=== PATIENT | male | born 1975 | race Caucasian/White ===

== ENCOUNTER 2024-04-25 10:25 | Day surgery (SDC) | payer OTHER, SELFPAY ==
[2024-04-19 09:19] VITALS: BMI 38.0
[2024-04-25] VITALS (13 sets, daily range): BP systolic 110–178; BP diastolic 61–101; PULSE 88–107; RESP 11–20; TEMP 36.4–37.1; O2SAT 90–98; BMI 38.0
--- NOTE | 2024-04-25 | DI.RAD.S_ITS ---
PROCEDURE: XR LUMBAR SPINE 2-3V INDICATIONS: TLIF L4-5 TECHNIQUE: Interbody stool COMPARISON: None FINDINGS: Bones: AP and lateral digital images from the OR show anterior/posterior L4-5 fusion provided by in body spacer pedicle screw struts. Alignment is anatomic. No osseous abnormality. Possible spacer overlies L5-S1 on the anterior view. Suggest full series Soft tissues: Overlying bowel gas pattern is normal. No suspicious soft tissue calcifications. IMPRESSION: L4-5 anterior/posterior fusion changes alignment is anatomic. Possible spacer overlying the L5-S1 region only on the AP view. Suggest full lumbar series images Dictated by: Max Restrepo M.D. on 04/26/2024 at 11:58 Approved by: Max Restrepo M.D. on 04/26/2024 at 12:01
[2024-04-25] MEDS: GABAPENTIN 600 MG TABLET PO (10:53)
[2024-04-25] MEDS: ACETAMINOPHEN 325 MG TABLET 975 MG PO (10:53)
--- NOTE | 2024-04-25 11:25 | PM.PREOP ---
Pre-operative Note Interval Note History & Physical reviewed/Exam performed by Physician: Yes Changes to H&P: No
[2024-04-25] MEDS: LACTATED RINGERS 1,000 ML 42 ML IV ×2 (11:26→13:58)
--- NOTE | 2024-04-25 12:03 | P.OP_ITS ---
Operative Date/Time/Diagnoses Date of procedure: 04/25/24 Time of procedure: 12:03 Pre-op diagnosis: 1. L4-5 spinal stenosis with neurogenic claudication 2. History of L5-S1 fusion with posterior instrumentation Post-op diagnosis: same Procedure & Clinicians Procedure: 1. L4-5 Postero-lateral and posterior interbody fusion 2. L4-5 interbody cage placement. 3. L4-5 decompressive laminectomy with bilateral facetecomies 4. L4-5 Posterior non-segmental instrumentation 5. L5-S1 revision laminectomy with exploration of fusion 6. [place] of bone marrow from iliac crest 7. Utilization of microsurgical technique and operating microscope 8. Utilization of robotic assisted navigation Same procedure as scheduled: Yes Indications: Patient has been having chronic back pain and worsening lumbar radiculopathy and symptoms of neurogenic claudication. He was found to have severe L4-5 spinal stenosis with history of L5-S1 fusion correlating with his current symptoms. Patient failed multiple conservative management with worsening pain weakness and numbness in his lower extremity. Patient has been having difficulty performing activity of daily living. After discussing risks benefits of treatment options, patient elected proceed with surgery. Surgeon: Royal Chase Can Sorter: Kim Rodriguez Click Yes if Unassisted: No Anesthesia Type: General Operative Notes Closure Type: primary Specimen(s): none sent Prosthetic devices, grafts, tissues, transplants, or devices: Globus CREO MIS screws, Rise cage Applied: catheter Estimated Blood Loss (mL): 100 Blood products transfused: none Procedure in detail: Patient was seen in the preoperative area. Risks and benefits of the surgery was discussed with the patient. Informed consent was obtained from the patient and placed in the chart. Surgical site was marked. Patient was taken to the operative room. General anesthesia was administered. Prophylactic antibiotic was given to the patient less than 30 min before the incision was made. Patient was placed into a prone position on the Yoel table. Patient's back was then prepped and draped in the sterile fashion. Time-out was performed at this time. After patient was prepped and draped, patient's PSIS was palpated and marked bilaterally. Small 1 cm incision was made over the PSIS for placement of the reference probes. Two trocar was placed into the PSIS 1 on each side. The reference probe was attached to the trocar of the reference apparatus. At this time the C-arm imaging was used to confirm AP and lateral of L4, L5, S1 vertebrae and merged the C-arm imaging using the Etece robotic navigation system with the CT of the lumbar spine. After successful merging was completed and confirmed, skin marker was used to mary out the skin incision using the Etece robotic arm. Bilateral incision was made at this time. Using patient's previous scar incision was made over the L4, L5, S1 interval on the right side. Fascia was incised in line with skin incision. Patient's previously placed hardware over the L5-S1 level was identified by dissecting down to the level the hardware using a Bovie and a Person. The locking caps which was removed using hardware removal regional flatbed truck driver. The locking pretty was then removed from the tulips of the pedicle screws using a Airam. The pedicle screws were then removed using the screwdriver. The screws were found to be solid without loosening. Pre templated trajectory was used and guided using the Etece robotic navigation system for left L4, L5 pedicle screws and right L4, L5 pedicle screws placement. This was done by using the robotic arm to guide the high- speed bur to make a cortical entry point. Next a drill was placed also using the robotic arm and guided using the navigation system drilling partially through bilateral L4, L5 pedicles. Next L4, L5 pedicle screws it was pre templated and measured was placed onto the power regional flatbed truck driver and inserted into the pedicles bilaterally. After all 4 screws were placed C-arm imaging was taken of both AP and lateral to confirm the placement. Excellent placement of the screws were confirmed and a matched precisely with the pre planned screw placement using the navigation system. MARs retractor was inserted using Etece nagivation guidence. Globus MARS retractors was placed inside the incision and docked onto the L4 lamina. Using microsurgical technique and operating microscope, a L4 laminectomy and L4-5 facetectomy was performed using a Kerrison rongeur. The laminectomy and facetectomy was performed in order to decompress patient's cauda equina as well as the nerve roots exiting at the L4-5 level. Patient was found have severe central stenosis, lateral recess and neural foramen stenosis which was fully decompressed after the laminectomy facetectomy. There was also significant epidural lipomatosis. The epidural lipomatosis was also resected using a pituitary to further decompress the epidural space. More than 75% of the facets were removed during the process of decompression rendering L4-5 level grossly unstable and required a fusion procedure at the same time. The disc space at L4-5 was identified, and a total diskectomy was performed at L4-5 level. The endplates were decorticated using a rasp and shaver. The total diskectomy and decortication was performed at L4-5 level in order to to accomplish a L4-5 fusion. The local bone from the laminectomy and facetectomy was saved for local bone grafting. After the total diskectomy and decortication was completed, Viacel bone graft material was combined with local bone that was harvested earlier. At this time, a separate skin is incision was made over the iliac crest. A Jamshidi needle was inserted into the iliac crest through a separate skin incision on the right. 5 cc of bone marrow aspiration was obtained through the separate skin incision using a Jamshidi needle from the iliac crest. The bone marrow aspiration was combined with local bone and the Viacel bone grafting material. The bone grafting material was placed into the L4-5 interbody space along with a expandable cage. The cages were expanded to its maximum height using the torque limiting screwdriver. The disc preparation as well as the cage insertion were also performed under navigation guidance. After the cage was placed, AP and lateral C-arm imaging was taken to confirm placement of the cage and excellent position was confirmed. The fusion mass on the left side of L5-S1 was exposed by performing a right- sided hemilaminectomy at L5-S1 level. The hemilaminectomy was performed using the Kerrison rongeur to undercut the lamina as well removing additional epidural scar tissue for purpose of decompressing the epidural space. The fusion of L5- S1 level was found to be solid. Globus MARS retractor was inserted and docked onto the L4-5 posterolateral gutter. Using the power drill, posterior-lateral decortication was performed at L4-5 level until bleeding cortical bone was identified. The remaining bone grafting material was placed into the L4-5 posterior lateral gutter he order to accomplish posterolateral fusion at the L4- 5 level. At this time the tulips were attached to the L4 and L5 pedicle screw shanks. This was done in L4 and L5 pedicles bilaterally. After measuring the length of the rods, they were inserted into the tulips of the pedicle screws and locked in place using locking caps and torque limiting screwdriver bilaterally. Total 4 caps and 2 titanium rods was used in order to complete the posterior instrumentation construct. After all the hardware was placed, and confirmed with AP and lateral C-arm imaging, the wound was then irrigated with sterile normal saline and packed with Ray-Ming gauze for 3 min to accomplish hemostasis. After the gauze was removed the deep fascia was closed with #1 Vicryl suture. The subcutaneous layer was closed with 2-0 Vicryl. The skin was closed with skin didier. Patient tolerated the procedure well. There were no complications. Neuro monitoring system was used to monitor patient's neurologic status throughout entire procedure. There was no disturbance of the neural monitoring signals throughout the case. The Operation could not have been safely performed without compromising the technical result or length of the procedure, without the assistance of a skilled surgical services asst. The surgical services asst was medically necessary for proper positioning, retraction and manipulation of instruments, proper exposure, surgical preparation, and manipulation of tissue. Complications: none Post-operative Condition: stable Disposition: PACU Plan for aftercare: Admit to inpatient hospital
[2024-04-25] MEDS: CEFAZOLIN 2 GM/100 ML PREMIX 100 ML IV (12:06)
--- NOTE | 2024-04-25 12:29 | SUR.OPER ---
Prone on spine table, head in foam head support, padded chest and pelvic supports, gel pad at knees, lower legs supported by pillows; nipples, genitalia and toes free of pressure, arms secured on foam padded arm boards at <90 degrees abduction. Tape over blanket at thigh secured to table.
[2024-04-25] MEDS: BUPIVACAINE 0.25% (PF) 60 ML, EPINEPHrine 0.15 MG INJ (13:13)
[2024-04-25] MEDS: BUPIVACAINE LIPOSOME 266 MG/20 ML VIAL INJ (13:17)
[2024-04-25] MEDS: hydrOXYzine 50 MG/ML INJ IM (15:15)
[2024-04-25] MEDS: MEPERIDINE 50 MG/ML INJ 12.5 MG IV (15:38)
[2024-04-25] MEDS: OXYCODONE IR 5 MG TABLET PO ×2 (15:51→20:18)
[2024-04-25] MEDS: LACTATED RINGERS 1,000 ML 125 ML IV (18:15)
[2024-04-25] MEDS: ACETAMINOPHEN 325 MG TABLET 650 MG PO (18:15)
[2024-04-25] MEDS: DOCUSATE 100 MG CAPSULE PO (20:17)
[2024-04-25] MEDS: SENNOSIDES 8.6 MG TABLET 17.2 MG PO (20:17)
[2024-04-25] MEDS: ATORVASTATIN 20 MG TABLET 80 MG PO (20:18)
[2024-04-25] MEDS: CEFAZOLIN VIAL 3 GM in SODIUM CHLORIDE 0.9% 100 ML IV (20:19)
[2024-04-25] MEDS: OXYCODONE IR 10 MG TABLET PO (23:15)
[2024-04-26] MEDS: OXYCODONE IR 10 MG TABLET PO ×2 (02:10→05:52)
[2024-04-26] MEDS: CEFAZOLIN VIAL 3 GM in SODIUM CHLORIDE 0.9% 100 ML IV (04:17)
[2024-04-26 04:44] LABS: Hematocrit 47.2 % (41-53); Hemoglobin 16.2 g/dL (13.5-17.5)
[2024-04-26 04:49] VITALS: BP 140/76; PULSE 100; RESP 20; TEMP 36.2; O2SAT 94
--- NOTE | 2024-04-26 07:24 | PM.DS.1 ---
History of Present Illness History of Present Illness Date Patient Seen: 04/26/24 Time Patient Seen: 07:24 Chief complaint: Back pain Narrative: Back pain has been [id number]. Patient has been up out of bed twice since surgery. Urinating on his own. Has assistance at home. Otherwise without complaints. Discharge Providers Provider Discharge Date: 04/26/24 Primary care physician: Blair Jones DO Consults: 04/25/24 16:34 Consult to Occupational Therapy Evaluate & Treat Comment: Physician Instructions: Evaluate and treat Consult to Physical Therapy Evaluate & Treat Comment: Physician Instructions: Evaluate and Treat Discharge provider: Steve Teixeira PA-C Summary Hospital Course Discharge Diagnosis: 1. L4-5 spinal stenosis with neurogenic claudication 2. History of L5-S1 fusion with posterior instrumentation Hospital Course: 1. L4-5 Postero-lateral and posterior interbody fusion 2. L4-5 interbody cage placement. 3. L4-5 decompressive laminectomy with bilateral facetecomies 4. L4-5 Posterior non-segmental instrumentation 5. L5-S1 revision laminectomy with exploration of fusion 6. [place] of bone marrow from iliac crest 7. Utilization of microsurgical technique and operating microscope 8. Utilization of robotic assisted navigation Same procedure as scheduled: Yes Indications: Patient has been having chronic back pain and worsening lumbar radiculopathy and symptoms of neurogenic claudication. He was found to have severe L4-5 spinal stenosis with history of L5-S1 fusion correlating with his current symptoms. Patient failed multiple conservative management with worsening pain weakness and numbness in his lower extremity. Patient has been having difficulty performing activity of daily living. After discussing risks benefits of treatment options, patient elected proceed with surgery. Surgeon: Royal Chase Tank Worker: Kim Rodriguez Click Yes if Unassisted: No Anesthesia Type: General Operative Notes Closure Type: primary Specimen(s): none sent Prosthetic devices, grafts, tissues, transplants, or devices: Globus CREO MIS screws, Rise cage Applied: catheter Estimated Blood Loss (mL): 100 Blood products transfused: none Patient admitted to the hospital for the above-mentioned procedure. Patient consented to the same. Patient underwent lumbar fusion April 25, 2024. Patient in his room recovering well as in stable condition. Patient has been out of bed twice. He is urinating on his own. He will be discharged home today in stable condition. Continue to limit bending, twisting, lifting. Multimodal pain management. Follow up outpatient [facility]opedics Clinic in 2 weeks. Status at Discharge Cognitive/behavioral status at discharge: at baseline, oriented Functional status at discharge: uses cane/walker Overall status at discharge: patient is progressing back to baseline Exam Vital Signs (past 8 hours): - 04/26/24 04:49 Temperature 97.2 F L Pulse Rate 100 H Respiratory Rate 20 Blood Pressure 140/76 Pulse Oximetry 94 Oxygen Flow Rate 0 Oxygen Delivery Method Room Air Oxygen Flow Rate 0 Narrative Exam Narrative: 49-year-old male resting comfortably in bed in no apparent distress. Neurovascular status is intact bilateral lower extremities. Const General: cooperative and comfortable Nutritional Appearance: average body habitus Orientation: alert Resp Effort & Inspection: normal respiratory effort and able to speak in complete sentences Objective Labs 04/26/24 04:18 Labs: Laboratory Results - last 24 hr 04/26/24 04:18 Hgb 16.2 Hct 47.2 PFSH Medical History (Updated 04/19/24 @ 10:29 by Devika Yadav RN) Minimal hearing limitation Hiatal hernia Spinal stenosis Psoriasis HLD (hyperlipidemia) Surgical History (Updated 04/19/24 @ 10:31 by Devika Yadav RN) S/P lateral meniscus repair of left knee (04/12/24) H/O medial meniscus repair of right knee History of lumbar fusion (~2007) Social History household members: spouse Smoking Status: Never smoker alcohol intake: current Discharge Assessment & Plan Assessment and Plan Assessment: Progressing as expected Plan of Treatment: Multimodal pain management Mobilize with physical therapy, limit bending, twisting, lifting Discharge home today after physical therapy if safe for home environment. Discharge Plan Discharge Plan Patient Disposition: Home Discharge orders & Medications Discharge Orders: Discharge (Order); Ordered 04/26/24 Ordered By: Steve Teixeira Prescriptions: New acetaminophen 325 mg Tablet 650 mg PO Q6H PRN (Reason: Fever/Mild Pain (1-3)) Qty: 60 0RF docusate sodium 100 mg Capsule 100 mg PO BID Qty: 10 0RF oxycodone 5 mg Tablet 5 mg PO Q3H PRN (Reason: Pain, Moderate (4-6)) Qty: 30 0RF Continued atorvastatin 80 mg tablet 80 mg PO QPM phentermine 37.5 mg tablet 37.5 mg PO QAM clobetasol 0.05 % ointment 1 applic topical BID PRN (Reason: psoriasis) testosterone cypionate 200 mg/mL oil 200 mg IM Q2W Follow up/Referrals: Blair Jones DO [Primary Care Provider] - Royal Chase MD [Physician] - 05/14/24 9:00 am (Follow up w/ Eunice Vidal PA-C, at [facility] office in [place].) Diet/Activity/Treatments Diet: Diet as Tolerated Activity: No deep bending or twisting at the waist. No lifting more than 10 pounds. Skin/Wound/Dressing Care Report to your healthcare provider any signs of infection, such as:: chills, fever, night sweats, unusual drainage and unusual redness Dressing: May shower. Keep dressings as dry as possible. If dressings become wet or dirty, may remove and replace with clean, dry gauze. No bathing or otherwise soaking incisions. Do not apply any creams, lotions, or ointments to incisions. Visit Report/Discharge Packet Instructions: DI for Prescription Opioid Use, DI for Transforaminal Lumbar Interbody Fusion Stand Alone Forms: Patient Portal/API, Surgery Discharge Discharge Data Primary Care Provider: Blair Jones Attending Provider: Royal Chase
--- NOTE | 2024-04-26 08:24 | PT.IIE ---
Current Diagnoses Spinal stenosis, lumbar region with neurogenic claudication (04/25/24) Arthrodesis status (04/25/24) Surgery Performed Operation Date: 04/25/24 12:00 Actual Procedures p L4-5 TLIF, L4-S1 PSF with instrumentation-Robot and hardware removal.(Not Applicable) - Royal Chase MD Surgical History (Last Updated 04/19/24 @ 10:31 by Devika Yadav, RN) H/O medial meniscus repair of right knee History of lumbar fusion (~2007) S/P lateral meniscus repair of left knee (04/12/24) Medical History (Last Updated 04/19/24 @ 10:29 by Devika Yadav, RN) Hiatal hernia HLD (hyperlipidemia) Minimal hearing limitation Psoriasis Spinal stenosis Physical Therapy Inpatient Evaluation/Re-Eval M1 PT/OT-IP Prior Functional Status Start: 04/26/24 07:38 Freq: NEEDED Status: Active Protocol: Document 04/26/24 07:39 MB (Rec: 04/26/24 08:24 MB [id number]) Medical Review Prior Functional Status Medical History Reviewed Yes Diet/Fluid Consistency Regular Communication WNLs Mobility and Gait I with SPC in right hand since recent left knee arthroscopic surgery Activities of Daily Living and IADL's I Social History Household Members spouse Living Arrangements House Number of Floors (Floors) One Floor Number of Stairs To Enter/Railing? 2 steps with B poles to enter Home Environment Standard Height Toilet,Walk in Shower,Built-In Shower Seat Home Equipment Four Wheel Walker,Straight Cane,Bedside Commode,Hand Held Shower,Long Handled Sponge, Integrated Circuit Fabricator,Grab Bars In Shower Employment Status Unemployed Additional Social History Comment Pt has an adjustable bed and new recliner lift chair M2 PT-IP Current Condition Start: 04/26/24 07:38 Freq: NEEDED Status: Active Protocol: Document 04/26/24 07:39 MB (Rec: 04/26/24 08:24 MB [id number]) Physical Therapy Current Condition Current Condition Evaluation Date 04/26/24 Treatment Diagnosis TLIF L4-S1 M3 PT-IP Subjective Start: 04/26/24 07:38 Freq: NEEDED Status: Active Protocol: Document 04/26/24 07:39 MB (Rec: 04/26/24 08:24 MB [id number]) Subjective Physical Therapy Visit Type Type Initial Evaluation Visit Start Time 07:39 Visit Stop Time 08:06 Number of CHECK EMBOSSER Visits 0 Physical Therapy Visit Comments Patient Comments Pt states he needs to use the rest room. Therapy Pain Assessment Pain When Pain Assessed At Rest Pain Present Pain Present Pain Reported Location back Intensity 5 Scale Used Numeric (0 - 10) M4 PT-IP Mobility and Gait Start: 04/26/24 07:38 Freq: NEEDED Status: Active Protocol: Document 04/26/24 07:39 MB (Rec: 04/26/24 08:24 MB [id number]) PT-Bed Mobility Assessment Rolling Type of Rolling Log Rolling,Roll to Left Level of Assist Standby Assistance Supine to Sit Supine to Sit Standby Assistance,1 Person Assistance,Bedrails Scooting Scooting to Edge of Bed Standby Assistance Scooting Up and Down in Bed Standby Assistance PT-Transfer Assessment Sit to and From Stand Sit to and from Stand Standby Assistance,1 Person Assistance,Use of Upper Extremities Equipment Transfer Assistive Device Gait Belt,Front Wheeled Walker Orthotic/Prosthetic Devices or Brace: No Transfers Transfer Destination Toilet Transfer Technique Ambulation Transfer Ability Level of Assist Standby Assistance Comments Mobility Comments Cues for hand placement for transfers and pt does reach for left bed rail initially and then gets up without use of rail. Discussed RW vs rollator and pt and state they feel comfortable with rollator use at home and discussed hand placement and safety with this. Gait Assessment Gait Gait Assistance Required: Standby Assistance Distance (Feet) 100 Able to Maintain Weight Bearing Status Yes During Gait Assistive Devices Assistive Device Gait Belt,Front Wheeled Walker Orthotic/Prosthetic Devices or Brace: No Gait Deviations General Gait Pattern Antalgic,Decreased Stride Length,Step-to Gait,Wide Based Gait Factors Limiting Gait Function Factors Limiting Gait Function Decreased Activity Tolerance, Decreased Sensation,Decreased Strength,Pain Comments Gait Comments Gait 20'x1 and 100'x2 with RW and slow and antaglic gait and cues to increase step-length with gait Stair Climbing Assessment Evaluation Level of Assist On Stairs Standby Assistance Devices Stair Climbing Assistive Devices Left Railing Technique/Endurance Stair Climbing Direction Ascend and Descend Stair Climbing Technique Step to Step Number of Steps Climbed 3 Query Text: Stair Climbing Set # Repetitions (reps) 1 Comments Stair Climbing Comments Step-to up the steps side ways , right foot first and facing rail to avoid twisting back and pt performs well PT-Balance Assessment Sitting Balance and Reactions Static Sitting Balance Ability Good Dynamic Sitting Balance Ability Good Standing Balance and Reactions Static Standing Balance Ability Good Dynamic Standing Balance Ability Good Device Used RW M5 PT-IP Objective Assessments Start: 04/26/24 07:38 Freq: NEEDED Status: Active Protocol: Document 04/26/24 07:39 MB (Rec: 04/26/24 08:24 MB [id number]) Orientation Orientation/Cognition Level of Alertness Alert Language Function Ability No Deficits Noted Safety Awareness Understands Safety Issues Memory Description No Deficits Noted Gross Range of Motion Upper Extremity ROM Impairments Defer to OT Lower Extremity ROM Assessment Within Functional Limits Strength Comments Strength Comments MMT deferred this date and functionally observed only and functional strength for transfers, gait and stair training today. Balance is also good enough for pt to urinate standing with RW nearby in BR with assistance this a.m. Coordination Assessment Gross Coordination Gross Coordination Impaired Sensation Assessment Sensation Gross Sensation Right LE Impaired,Left LE Impaired Comments Sensation Comments Pt reports mild numbness B LEs post-op that he also had pre- op Muscle Tone Muscle Tone WNL Yes M6 PT-IP Treatment Start: 04/26/24 07:38 Freq: NEEDED Status: Active Protocol: Document 04/26/24 07:39 MB (Rec: 04/26/24 08:24 MB [id number]) Physical Therapy Treatment Education Education Provided Precautions,Post-Op Packet, Safety Other Treatments Other Treatment Performed Ed pt in back precautions, practiced log rolling and steps and provided post-op book, ed in use of ice and frequent walks at home M7 PT-IP Assessment and Plan Start: 04/26/24 07:38 Freq: NEEDED Status: Active Protocol: Document 04/26/24 07:39 MB (Rec: 04/26/24 08:24 MB [id number]) PT Summary Assessment and Plan Potential Rehabilitation Potential Good Status of Condition at Evaluation Evolving Summary Impairments Pain,ROM,Strength,Balance, Coordination,Sensation,Bed Mobility,Transfers,Gait, Activity Tolerance Progress Towards Goals Progressing Toward Goals Assessment Summary Pt is a 49 y/o male presenting with pain POD 1 TLIF L4-S1. is nearby for eval and practiced log rolling, reviewed back precautions and post-op book. Practiced transfers, gait and steps this morning and pt and and they verbalize understanding of training. OT may check orthostatics and rollator use with pt. PT did not check BP did pt's third time up and urgent need to toilet this a.m . Currently, pt and not interested in RW for home. No further acute PT needs and will d/c PT. Frequency of Treatment Frequency Of Treatment Discharge Precautions Lumbar Precautions Log Roll,No Twisting,Limit Bending,Lifting Restriction of 10 lbs,Gait Belt above Incisional Area Recommendations To Nursing Amount of Assist Needed Standby Assistance Discharge Recommendations PT Discharge Recommendations Home with Assistance, Outpatient PT Transportation Needs at Discharge Private Vehicle
[2024-04-26 09:06] VITALS: BP 145/79; PULSE 92; RESP 16; TEMP 36.7; O2SAT 96
[2024-04-26] MEDS: DOCUSATE 100 MG CAPSULE PO (09:30)
[2024-04-26] MEDS: OXYCODONE IR 5 MG TABLET PO (09:30)
--- NOTE | 2024-04-26 09:35 | OT.IP.EVAL ---
Current Diagnoses Spinal stenosis, lumbar region with neurogenic claudication (04/25/24) Arthrodesis status (04/25/24) Surgery Performed Operation Date: 04/25/24 12:00 Actual Procedures p L4-5 TLIF, L4-S1 PSF with instrumentation-Robot and hardware removal.(Not Applicable) - Royal Chase MD Past Medical History (Last Updated 04/19/24 @ 10:29 by Devika Yadav, RN) Hiatal hernia HLD (hyperlipidemia) Minimal hearing limitation Psoriasis Spinal stenosis Surgical History (Last Updated 04/19/24 @ 10:31 by Devika Ydaav, RN) H/O medial meniscus repair of right knee History of lumbar fusion (~2007) S/P lateral meniscus repair of left knee (04/12/24) Occupational Therapy Inpatient Evaluation/Re-Eval M1 PT/OT-IP Prior Functional Status Start: 04/26/24 07:38 Freq: NEEDED Status: Active Protocol: Document 04/26/24 07:39 MB (Rec: 04/26/24 08:24 MB [id number]) Medical Review Prior Functional Status Medical History Reviewed Yes Diet/Fluid Consistency Regular Communication WNLs Mobility and Gait I with SPC in right hand since recent left knee arthroscopic surgery Activities of Daily Living and IADL's I Social History Household Members spouse Living Arrangements House Number of Floors (Floors) One Floor Number of Stairs To Enter/Railing? 2 steps with B poles to enter Home Environment Standard Height Toilet,Walk in Shower,Built-In Shower Seat Home Equipment Four Wheel Walker,Straight Cane,Bedside Commode,Hand Held Shower,Long Handled Sponge, Motor Mechanic,Grab Bars In Shower Employment Status Unemployed Additional Social History Comment Pt has an adjustable bed and new recliner lift chair M1 PT/OT-IP Prior Functional Status Start: 04/26/24 10:16 Freq: NEEDED Status: Active Protocol: Document 04/26/24 10:17 CCC (Rec: 04/26/24 10:26 [facility] [id number]) Medical Review Prior Functional Status Medical History Reviewed Yes Diet/Fluid Consistency Regular Communication WNLs Mobility and Gait I with SPC in right hand since recent left knee arthroscopic surgery Activities of Daily Living and IADL's I Social History Household Members spouse Living Arrangements House Number of Floors (Floors) One Floor Number of Stairs To Enter/Railing? 2 steps with B poles to enter Home Environment Standard Height Toilet,Walk in Shower,Built-In Shower Seat Home Equipment Four Wheel Walker,Straight Cane,Bedside Commode,Hand Held Shower,Long Handled Sponge, Motor Mechanic,Grab Bars In Shower Employment Status Unemployed Additional Social History Comment Pt has an adjustable bed and new recliner lift chair M2 OT-IP Current Condition Start: 04/26/24 10:16 Freq: Status: Active Protocol: Document 04/26/24 10:17 [facility] (Rec: 04/26/24 10:26 [facility] [id number]) Occupational Therapy Current Condition Current Condition Evaluation Date 04/26/24 Treatment Diagnosis S/P L4-S1 TLIF Diagnosis Onset Date 04/25/24 Post Operative Precautions Lumbar Precautions Log Roll,No Twisting,Limit Bending,Lifting Restriction of 10 lbs,Gait Belt above Incisional Area M3 OT- IP Subjective and Pain Start: 04/26/24 10:16 Freq: Status: Active Protocol: Document 04/26/24 10:17 [facility] (Rec: 04/26/24 10:26 [facility] [id number]) OT- Subjective Occupational Therapy Visit Type Type Initial Evaluation Visit Start Time 08:50 Visit Stop Time 09:35 Occupational Therapy Visit Comments Patient Comments Pt agreed to get up and get dressed. Patient/Caregiver Goals To go home. OT Pain Assessment Pain When Pain Assessed During Mobility Pain Present Pain Present Pain Reported Location back Intensity 7 Scale Used Numeric (0 - 10) M4 OT- IP ADL's Start: 04/26/24 10:16 Freq: Status: Active Protocol: Document 04/26/24 10:17 [facility] (Rec: 04/26/24 10:26 [facility] [id number]) OT EIR-Azej-Aslyhix General Evaluation Self-Feeding Ability Independent OT ADL-Grooming Comments OT Grooming Comments Not performed. OT ADL-Oral Care Comments Oral Care Comments Educated pt to hinge at his hip or just spit into a cup to best follow his back precautions. OT ADL-Dressing General Eval Lower Body Dressing Ability Moderate Assistance Areas Needing Assistance Socks,Shoes Comments OT Dressing Comments Able to practice LB dressing equipment with pt and pt plans on getting some. OT ADL-Toileting Comments OT Toileting Comments Educated best to use wipe and get toilet paper aid or assist . OT ADL-Bathing Comments OT Bathing Comments Pt states to use a BSC in the shower and have assist. Educated best to cover the dressing for showering needs. M5 OT- IP IADL's Start: 04/26/24 10:16 Freq: Status: Active Protocol: Document 04/26/24 10:17 [facility] (Rec: 04/26/24 10:26 [facility] [id number]) OT-Instrumental Activities of Daily Living Home Safety Awareness Awareness of Need for Assistance at Home Good Awareness Ability to Problem Solve Emergency Able to Problem Solve Situations Home Safety Comments Pt has a supportive to be able to assist with all needs . Meal Preparation Meal Preparation Caregiver Provides Assist Ceramics Engineer Ceramics Engineer Caregiver Provides Assist M6 OT- IP Functional Cognition Start: 04/26/24 10:16 Freq: Status: Active Protocol: Document 04/26/24 10:17 [facility] (Rec: 04/26/24 10:26 [facility] [id number]) Cognitive Factors Limiting Selfcare Function Cognitive Ability Level of Alertness Alert Patient Orientation Name,Age,Birthday,Month,Date, Year,Day of Week,Place, Situation Attention Span Ability Capable of Focused Attention, Capable of Sustained Attention Ability to Follow Commands Able to Follow One Step Commands Safety Awareness Decreased Recall of Precautions,Decreased Ability to Apply Precautions Cognitive Comments Cognitive Assessment Comments Pt needing reminders to follow and incorporate his back precautions for all needs. OT- Vision and Hearing OT- Hearing Assessment OT- Hearing Assessment WFL OT- Vision Assessment Visual Acuity WFL M7 OT- IP Mobility and Balance Start: 04/26/24 10:16 Freq: Status: Active Protocol: Document 04/26/24 10:17 [facility] (Rec: 04/26/24 10:26 [facility] [id number]) OT-Transfer Assessment Sit to and From Stand Sit to and from Stand Standby Assistance Transfers Transfer Ability Standby Assistance Technique Transfer Destination Chair Transfer Technique Stand Step Pivot Devices Transfer Assistive Devices Gait Belt Comments Mobility Comments Pt able to come to stand with SBA and heavy use of his arm on the 4ww during ambulation. Spoke of FWW and may be more stable but pt states will just get one if needed. Pt's able to assist pt for mobility needs. Went over car transfer . Pt's BP 136/80 sitting and standing 152/77. Notified nursing pt requesting pain medications. OT- Balance Assessment Sitting Balance and Reactions Static Sitting Balance Ability Good Dynamic Sitting Balance Ability Good Standing Balance and Reactions Static Standing Balance Ability Good Dynamic Standing Balance Ability Fair M8 OT- IP Objective Assessments Start: 04/26/24 10:16 Freq: Status: Active Protocol: Document 04/26/24 10:17 [facility] (Rec: 04/26/24 10:26 [facility] [id number]) OT Gross Range of Motion Upper Extremity Range of Motion Assessment Within Functional Limits OT Strength Upper Extremity Strength Assessment Within Functional Limits M9 OT- IP Assessment and Plan Start: 04/26/24 10:16 Freq: Status: Active Protocol: Document 04/26/24 10:17 [facility] (Rec: 04/26/24 10:26 [facility] [id number]) OT Summary Assessment and Plan Potential Rehabilitation Potential Excellent Analytic Complexity at Evaluation Low Summary OT Impairments Pain,Balance,Functional Mobility,Dressing,Toileting, Bathing,Toilet Transfers, Shower Transfers Progress Towards Goals Progressing Toward Goals Assessment Summary Pt low complexity main barriers are steps, pain, and will benefit from getting LB dressing equipment and have assist for ADL and IADL needs. Pt to go home with his to assist. Goals Grooming Goal Independent Dressing Goal Minimal Assistance,Motor Mechanic, Sock Aid Toileting Goal Independent,Toilet Paper Aid Bathing Goal Minimal Assistance Toilet Transfer Goal Independent Shower Transfer Goal Standby Assistance Days to Meet Goals 5 Frequency of Treatment Frequency Of Treatment Once a Day Treatment Plan OT Treatment Plan ADL Training,Functional Mobility,Patient/Family Education,Discharge Planning Discharge Recommendations OT Discharge Recommendations Home with Assistance Home Equipment Needs LB dressing equipment Transportation Needs at Discharge Private Vehicle
--- NOTE | 2024-04-26 10:15 | PC.NURSE ---
D/c instructions reviewed with Pt and spouse. Discussed no driving while taking narcotics, and to increase fluid intake to reduce constipation. Pt agreeable to d/c. IV removed. Pt exited via w/c with COSTUMING SUPERVISOR and spouse to private vehicle.
--- NOTE | 2024-04-26 11:41 | CM.DANOTE ---
Initial DCP Assessment Visit Note Reviewed EMR and team rounds for status updates. Met with pt and family at bedside to introduce self and role, pt was found to be dressed, preparing for home d/c. Pt lives independently at baseline with his and family in their own home in [place]. His family is present and will be transporting him home. He denies and CM assistance/resource needs at this time. He will f/u with Ortho in 2-weeks, followed by OP PT. Payor: Sathya Attending: Dr. Chase Pt is a 49 year-old M post-op day 1 from a lumbar TLIF surgery. He has a hx of worsening lumbar pain over the last few years, with pain radiating down his right thigh and leg, numbness and tingling as well. 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 He has been receiving PT at [facility] without lasting benefit. He recently had a R-knee arthroscopy on 04/10/24, and has since been walking with a cane for mobility. Post-op day one he has had no difficulties and pain was well managed at the time of his discharge. Discharge Planning/Care Management CM Discharge Assessment Start: 04/26/24 11:34 Freq: Status: Active Protocol: Document 04/26/24 11:35 DPL (Rec: 04/26/24 11:41 DPL [id number]) Discharge Planning Assessment Assigned Oceanography Professor IRISH Mcneil Advance Directives? No History Provided By Patient,Medical Record Has Patient been admitted in last 30 No days? Prior Living Arrangements House Household Members spouse,children Type of transporation used prior to Drives own vehicle admit Independent with ADL's No: using a cane since his knee arthroscopy on 04/10/24 Is patient alert and oriented? Yes Comment N/A Caregiver for Another Yes: family Community Services used prior to Physical Therapy admission: DME Already Rented / Owned Elevated Toilet Seat,FWW / Walker,Cane Patient/Family Preference OP PT Therapy Barriers to Discharge No Discharge Plan Home Community Services Physical Therapy Transportation Arrangement Family Referrals Initiated None needed Whiteboard Updated in Patient Room with Yes name and ext. # of Oceanography Professor Review Status In Process Please Provide Date Initial DC 04/26/24 Assessment Was Performed Pre-Anesthesia Assessment Start: 04/19/24 09:19 Freq: Status: Discharge Protocol: Document 04/19/24 09:19 LB (Rec: 04/19/24 10:28 LB [id number]) Pre-Anesthesia Assessment PAC Comment 04/19/24 Phone assessment. Patient Information Reviewed Via Phone Assessment Assessment Completed With Patient Primary Care Provider Blair Jones Seen Specialist in Last 12 Months Yes Specialist Seen Orthopedist Primary Language Occitan Preferred Language Occitan Inside Outside Sales Representative Required No Height 180.34 cm Weight 123.831 kg Body Mass Index (BMI) 38.0 Hearing Ability Normal Visual Assist None Dentition Type Teeth, Natural Present Other Aids No Hx Anesthesia Reactions No: I have a fat tongue that falls into my throat Hx Family Anesthesia Reaction No Hx Malignant Hyperthermia No Hx Blood Transfusions No Anesthesia Review Requested No Cork Insulation Installer No alcohol intake current alcohol intake frequency holidays/special occasions only Smoking Status Never smoker Substance Use Type marijuana Pain Present Pain Reported Comment left knee, back. Musculoskeletal Symptoms Back Pain,Joint Pain,Joint Swelling,Numbness,Post op Pain ,Radiating Pain into Limb History of Falling (Recent or History of Yes ) Comment Fell off deck 2021 - knee surgery 04/12/24 Patient is completely paralyzed or No completely immobile Prosthesis or Orthotic Device Cane Mental Status Oriented to own ability Comment Will bring walker. Is patient on oxygen? No Hx Sleep Apnea No Currently Taking a Beta Ahttie No Can You Climb a Flight of Stairs Without Yes SOB Hx Chest Pain Yes: R/T over exertion, working in temp >100 degrees Hx SOB No Hx Syncope or Dizziness No Anti-Coagulant Therapy No Cardiac Testing No Hx Pacemaker/ICD No Dysphagia No Gastrointestinal Symptoms Reflux Bladder Pattern Nocturia Urinary Catheter Present No Diabetes No Hx Drug Resistant Organism No Presence of External or Internal Medical No Devices Have you had any close contact with No someone diagnosed with COVID-19? Are you experiencing any of these No symptoms symptoms? Marital Status Lives With spouse Current Living Arrangements House Number of Floors (Floors) One Floor Number of Stairs To Enter/Railing? 3 steps with railing. Support System Spouse Does the Patient Have Assistance After Yes Surgery Patient Discharge Plan Description Return Home Additional comment Advised overnight LOS. Feels Safe in Current Environment Yes Do you have a plan to hurt yourself or No Plan others? Emergency Contact Name Velma Sanders Emergency Contact Advance Directives? No PAC Instructions Assistance for 24 hours post- op,Durable medical equipment, Medications to take/avoid,No ETOH/petroleum product on skin DOS,NPO,Post-op transportation,Pre-surgical wash,Sturdy shoes/comfortable clothes,Do not bring valuables and remove jewelry
--- NOTE | 2024-05-04 20:03 | PC.NURSE ---
Patient received oxycodone at 1820 on 04/25 for pain.
== END 2024-04-26 10:27 | disposition home or self-care (01) ==
LOC: OR 10:32 → AC 16:30
PROVIDERS: PCP Family Medicine; Referring Provider Orthopaedic Surgery Orthopaedic Surgery of the Spine; Visit Provider Orthopaedic Surgery Orthopaedic Surgery of the Spine
PROC: (CPT 22633; principal; 2024-04-25 12:00)
DX: M48.062 Spinal stenosis, lumbar region with neurogenic claudication (principal); M54.16 Radiculopathy, lumbar region; Z98.1 Arthrodesis status
CPT/HCPCS: 22633; 22840; 63052; 22853; 20939; 63042; 36415; 72100; 76000; 85014; 85018; 97161; 97165; 97530; 97535; C1713; C1821; C9290; J0171; J0330; J0690; J1100; J1171; J2175; J2250; J2405; J2704; J3010; J3410